=== PATIENT | male | born 1985 | race Caucasian/White ===

== ENCOUNTER 2017-07-08 10:41 | Observation (INO) | payer OTHER ==
[2017-07-08 12:03] LABS: AUTOMATED NEUTROPHIL # 5.2 TH/MM3 (1.8-7.7); BASOPHIL # 0.1 TH/MM3 (0-0.2); EOSINOPHIL # 0.2 TH/MM3 (0-0.4); EOSINOPHIL % 2.3 % (0.0-4.0); HEMATOCRIT 37.8 % (39.0-51.0); HEMO FLAGS DIFF FINAL; HEMOGLOBIN 12.1 GM/DL (13.0-17.0); LYMPH % 29.5 % (9.0-44.0); LYMPHOCYTE # 2.5 TH/MM3 (1.0-4.8); MEAN CORPUSCULAR HEMOGLOBIN 24.1 PG (27.0-34.0); MEAN CORPUSCULAR HGB CONC 32.1 % (32.0-36.0); MEAN PLATELET VOLUME 7.5 FL (7.0-11.0); MONO % 6.2 % (0.0-8.0); MONOCYTE # 0.5 TH/MM3 (0-0.9); PLATELET COUNT 345 TH/MM3 (150-450); RED BLOOD COUNT 5.05 MIL/MM3 (4.50-5.90); RED CELL DISTRIBUTION WIDTH 16.7 % (11.6-17.2); WHITE BLOOD COUNT 8.5 TH/MM3 (4.0-11.0)
[2017-07-08] MEDS: SODIUM CHLORID 0.9% 500 ML INJ 500 ML IV (12:11)
[2017-07-08] MEDS: MECLIZINE HCL 25 MG TAB PO (12:11)
[2017-07-08 12:19] LABS: ANION GAP 6 MEQ/L (5-15); AST (GOT) 45 U/L (15-37); BICARBONATE 29.1 MEQ/L (21.0-32.0); BLOOD UREA NITROGEN 21 MG/DL (7-18); CALCIUM 9.9 MG/DL (8.5-10.1); CHLORIDE 105 MEQ/L (98-107); CREATININE 0.91 MG/DL (0.60-1.30); GLOMERULAR FILTRATION RATE 99 ML/MIN (>89); GLUCOSE,RANDOM 133 MG/DL (74-106); MAGNESIUM 1.9 MG/DL (1.5-2.5); POTASSIUM 4.6 MEQ/L (3.5-5.1); SODIUM (NA) 140 MEQ/L (136-145)
[2017-07-08 12:30] LABS: ALKALINE PHOSPHATASE 80 U/L (45-117); ALT (GPT) 65 U/L (12-78); TOTAL BILIRUBIN ADULT 0.3 MG/DL (0.2-1.0); TOTAL PROTEIN 8.2 GM/DL (6.4-8.2); TROPONIN I LESS THAN 0.02 NG/ML (0.02-0.05)
[2017-07-08 12:32] LABS: CREATINE KINASE 76 U/L (39-308)
[2017-07-08] MEDS: ONDANSETRON HCL 4 MG/2 ML VIAL IV PUSH (13:32)
[2017-07-08] MEDS: LORazepam 2 MG/ML VIAL IV PUSH (13:33)
[2017-07-08] MEDS ORDERED: DEXTROSE 50% IN WATER 50 ML VIAL(D50) IV PUSH (14:30)
[2017-07-08] MEDS ORDERED: GLUCAGON 1 MG/ML VIAL OTHER (14:30)
[2017-07-08] MEDS ORDERED: MECLIZINE HCL 25 MG TAB PO (14:45)
[2017-07-08] MEDS: INSULIN ASPART SUPPLEMENTAL SCALE SQ ×2 (17:00→21:32)
[2017-07-08] MEDS: GADODIAMIDE PF 287 MG/ML 5 ML VIAL (for RAD MRI) IVCONTRAST (19:32)
[2017-07-09] MEDS: INSULIN ASPART SUPPLEMENTAL SCALE SQ (08:00)
[2017-07-09] MEDS: PROPRANOLOL HCL 10 MG TAB PO (10:43)
[2017-07-09] MEDS: PANTOPRAZOLE SOD 40 MG DELAYED RELEASE TAB PO (10:44)
[2017-07-09] MEDS ORDERED: MECLIZINE HCL 25 MG TAB PO (12:00)
== END 2017-07-09 15:35 | disposition home or self-care (01) ==
LOC: NEPC 10:41 → NEDA 14:09 → NEPGCP 15:08
DX: R55 Syncope and collapse (principal); R42 Dizziness and giddiness; R11.2 Nausea with vomiting, unspecified; I45.6 Pre-excitation syndrome; R00.1 Bradycardia, unspecified; I49.9 Cardiac arrhythmia, unspecified; G93.0 Cerebral cysts; E11.9 Type 2 diabetes mellitus without complications; G43.909 Migraine, unspecified, not intractable, without status migrainosus
CPT/HCPCS: 70450; 70553; 80053; 82550; 82948; 83735; 84443; 84484; 85025; 93005; 96361; 96374; 96375; 99285-25